=== PATIENT | male | born 1985 | race Native Hawaiian/Other Pacific Islander ===

== ENCOUNTER 2018-01-02 10:14 | Emergency (ER) | payer OTHER ==
[2018-01-02 10:28] VITALS: BP 143/89; PULSE 70; RESP 16; TEMP 97.5; O2SAT 99
[2018-01-02] MEDS ORDERED: Sodium Chloride 0.9% 1,000 ML IV STA (10:48)
--- NOTE | 2018-01-02 11:09 | ED PDOC ---
Upper Extremity Pain/Injury Time Seen by Provider: 01/02/18 10:26 Chief Complaint (Nursing): Upper Extremity Problem/Injury Chief Complaint (Provider): Upper Extremity Problem/Injury History Per: Patient History/Exam Limitations: no limitations Onset/Duration Of Symptoms: Days (x2) Current Symptoms Are (Timing): Still Present Additional Complaint(s): 32 year old male with medical history of asthma, presents to the emergency department with a complaint of right-sided neck pain radiating to right shoulder ongoing for 2 days. Patient stated he had went bowling a few days prior to onset of symptoms. He also reported left sided lower back pain that radiates to his left leg. Denied any weakness or paresthesia. Patient was seen in Urgent Care earlier today and referred to ED to evaluate concern for rhabdomyolysis. PMD: none provided Past Medical History Reviewed: Historical Data, Nursing Documentation, Vital Signs Vital Signs: Last Vital Signs Temp 97.5 F L 01/02/18 10:33 Pulse 70 01/02/18 10:33 Resp 16 01/02/18 10:33 BP 143/89 01/02/18 10:33 Pulse Ox 99 01/02/18 10:33 - Medical History PMH: Asthma - Surgical History Surgical History: No Surg Hx - Family History Family History: States: Unknown Family Hx - Social History Current smoker - smoking cessation education provided: No Alcohol: Social Drugs: Denies - Home Medications Home Medications: Ambulatory Orders Medication Instructions Recorded Cyclobenzaprine [Cyclobenzaprine 10 mg PO TID #10 tab 01/02/18 HCl] Naproxen [Naprosyn] 500 mg PO Q12H #20 tab 01/02/18 - Allergies Allergies/Adverse Reactions: Allergies Allergy/AdvReac Type Severity Reaction Status Date / Time No Known Allergies Allergy Verified 01/02/18 10:35 Review of Systems ROS Statement: Except As Marked, All Systems Reviewed And Found Negative Musculoskeletal: Positive for: Neck Pain (right-sided), Shoulder Pain (right- sided), Back Pain (lower left-side), Leg Pain (left-sided) Neurological: Negative for: Weakness (or paresthesia) Physical Exam - Reviewed Nursing Documentation Reviewed: Yes Vital Signs Reviewed: Yes - Physical Exam Appears: Positive for: Non-toxic, No Acute Distress Neck: Positive for: Pain On Movement Of Neck (right-sided paracervical tenderness with muscle spasm). Negative for: Trachea Midline (tenderness) Back: Positive for: Normal Inspection. Negative for: Vertebral Tenderness, Muscle Spasm Extremity: Positive for: Normal ROM (upper/lower). Negative for: Pedal Edema, Calf Tenderness, Deformity (upper/lower) Neurologic/Psych: Positive for: Alert, Oriented. Negative for: Motor/Sensory Deficits (or focal deficits) - Laboratory Results Result Diagrams: 01/02/18 10:58 - ECG O2 Sat by Pulse Oximetry: 99 (RA) Pulse Ox Interpretation: Normal Medical Decision Making Medical Decision Making: Initial Impression: Neck pain; Shoulder pain; Back pain Initial Plan: * CMP * CPK * NS 1,000ml IV per 1,000mls/hr * Xray c-spine Scribe Attestation: Documented by Lupe Wilburn, acting as a scribe for Farhad Lazo MD. Provider Scribe Attestation: All medical record entries made by the Scribe were at my direction and personally dictated by me. I have reviewed the chart and agree that the record accurately reflects my personal performance of the history, physical exam, medical decision making, and the department course for this patient. I have also personally directed, reviewed, and agree with the discharge instructions and disposition. Disposition - Clinical Impression Clinical Impression: Radiculopathy, cervical - Patient ED Disposition Is Patient to be Admitted: No Counseled Patient/Family Regarding: Studies Performed, Diagnosis, Need For Followup, Rx Given - Disposition Referrals: Danilo Mensah MD [Medical Doctor] - Disposition: Routine/Home Disposition Time: 11:20 Condition: FAIR Prescriptions: Cyclobenzaprine [Cyclobenzaprine HCl] 10 mg PO TID #10 tab Naproxen [Naprosyn] 500 mg PO Q12H #20 tab Instructions: Radiculopathy Forms: [employer] (Guyanese)
[2018-01-02 11:10] LABS: ALB/GLOB RATIO 1.4 (1.0-2.1); ALBUMIN 4.7 g/dL (3.5-5.0); ALT/SGPT 49 U/L (21-72); AST/SGOT 52 U/L (17-59); BLOOD UREA NITROGEN 18 mg/dl (9-20); CALCIUM 9.8 mg/dL (8.4-10.2); GFR AFRICAN-AMERICAN > 60; GFR NON-AFRICAN AMERICAN > 60
--- NOTE | 2018-01-02 11:11 | RAD ---
PROCEDURE: Cervical Spine Radiographs. HISTORY: Pain. COMPARISON: None. FINDINGS: BONES: Alignment maintained. No fracture. Dens Intact. Straightening of the cervical spine which could be due to muscle spasm. DISC SPACES: [id number] intervertebral disc is space narrowing noted specially at C3-C4 and C6-C7. Osteophyte lipping noted more prominent at C3-C4 and C6-C7 suggestive of endplate degenerative changes. SOFT TISSUES: Normal. No prevertebral soft tissue swelling. OTHER FINDINGS: None. IMPRESSION: Moderate degenerative changes associated with osteophyte formation more prominent at C3-C4 and C6-C7.
== END 2018-01-02 11:46 | disposition home or self-care (01) ==
LOC: H.ER 10:14
DX: M54.12 Radiculopathy, cervical region (principal)
CPT/HCPCS: 72040; 80053; 82550; 96361; 96374; 99283; J1885; J7040

== ENCOUNTER 2018-03-07 08:57 | Emergency (ER) | payer OTHER ==
[2018-03-07 09:03] VITALS: BP 137/88; PULSE 82; TEMP 97; O2SAT 98
[2018-03-07 09:04] VITALS: BMI 25.7
--- NOTE | 2018-03-07 09:26 | ED PDOC ---
Lower Extremity Pain/Injury Time Seen by Provider: 03/07/18 09:05 Chief Complaint (Nursing): Lower Extremity Problem/Injury History Per: Patient (This 32 yo male presents to the ER because of multiple falls related to ongoing right knee pain that prevents him from having a normal gait. This causes his right foot to drag. He says he fells a few times landing on his knee. In addition he feels his hips popping in and out. Patient was seen in this ER 2 months ago. He had some blood work and x-rays and was discharged to followup with ortho in the area. He has not been able to because he works in [employer] and lives in [place]. His other complaints include hyperextension of the right first toe. He is concerned about fractures of his feet and is interested to know the bony condition of his knees and hips. Patient arrived to the ER via [employer] and ambulated into his ER location.) History/Exam Limitations: no limitations Current Symptoms Are (Timing): Still Present Past Medical History Reviewed: Historical Data Vital Signs: Last Vital Signs Temp 97 F L 03/07/18 09:03 Pulse 82 03/07/18 09:03 Resp BP 137/88 03/07/18 09:03 Pulse Ox 98 03/07/18 09:07 - Medical History PMH: Asthma Other PMH: diffuse eczema - Surgical History Surgical History: No Surg Hx - Family History Family History: States: Unknown Family Hx - Living Arrangements Living Arrangements: Alone - Social History Current smoker - smoking cessation education provided: No Alcohol: Social Drugs: Denies - Home Medications Home Medications: Ambulatory Orders Medication Instructions Recorded Cyclobenzaprine [Cyclobenzaprine 10 mg PO TID #10 tab 01/02/18 HCl] Naproxen [Naprosyn] 500 mg PO Q12H #20 tab 01/02/18 - Allergies Allergies/Adverse Reactions: Allergies Allergy/AdvReac Type Severity Reaction Status Date / Time No Known Allergies Allergy Verified 03/07/18 09:06 Review of Systems ROS Statement: Except As Marked, All Systems Reviewed And Found Negative Constitutional: Negative for: Fever, Chills Respiratory: Negative for: Shortness of Breath Gastrointestinal: Negative for: Nausea, Vomiting Musculoskeletal: Positive for: Other (abnormal gait with right foot drag, hyperextended right toe, evidence of knee joint laxity when walking. He is able to bear weight. ). Negative for: Back Pain Physical Exam - Reviewed Nursing Documentation Reviewed: Yes Vital Signs Reviewed: Yes - Physical Exam Appears: Positive for: Well, Non-toxic, No Acute Distress Head Exam: Positive for: ATRAUMATIC, NORMAL INSPECTION, NORMOCEPHALIC Skin: Positive for: Normal Color, Warm, Rash (diffuse eczema) Eye Exam: Positive for: Normal appearance ENT: Positive for: Normal ENT Inspection Neck: Positive for: Normal Gastrointestinal/Abdominal: Positive for: Normal Exam, Soft Back: Positive for: Normal Inspection Extremity: Positive for: Other (hyperextended right first toe; joint laxity of the right knee (patient able to flex; the knee seems to hyperextend when he stands and puts weight on it). The is no swelling or obvious deformity of any of his joints.) Neurologic/Psych: Positive for: Alert, Oriented - ECG O2 Sat by Pulse Oximetry: 98 - Radiology X-Ray: Read By Radiologist X-Ray Interpretation: No Acute Disease Medical Decision Making Medical Decision Making: X-rays read by radiology. Patient has CD's with images of all x-rays. Advised patient to followup with a PCP. Also referred him to neurosurgery, orthopedics and neurology for further evaluation. Disposition - Clinical Impression Clinical Impression: Joint problem - Patient ED Disposition Is Patient to be Admitted: No Doctor Will See Patient In The: Office Counseled Patient/Family Regarding: Diagnosis, Need For Followup - Disposition Referrals: Jhon Garrison MD [Staff Provider] - Jazzy Rodriguez MD [Staff Provider] - [employer] [facility] [Outside] Mandeep Cramer MD [Medical Doctor] - Disposition: Routine/Home Disposition Time: 10:38 Condition: STABLE Instructions: Joint Pain Forms: [employer] (Italian) - POA Present On Arrival: Falls Or Trauma
--- NOTE | 2018-03-07 10:04 | RAD ---
PROCEDURE: Radiographs of the Lumbar Spine. HISTORY: pain; yesterday COMPARISON: No prior. FINDINGS: BONES: Normal alignment. No listhesis. No fracture. DISC SPACES: Unremarkable. OTHER FINDINGS: None. IMPRESSION: Unremarkable radiographs of the lumbar spine.
--- NOTE | 2018-03-07 10:04 | RAD ---
PROCEDURE: Radiographs of the pelvis and bilateral hips HISTORY: pain; yesterday COMPARISON: None. FINDINGS: BONES: Pelvis: Unremarkable. Right hip:Unremarkable. Left hip:Unremarkable. JOINTS: Right hip: Unremarkable. Left hip: Unremarkable. Sacroiliac Joints: Unremarkable. Pubic symphysis: Unremarkable. SOFT TISSUES: Normal. OTHER FINDINGS: None. IMPRESSION: Unremarkable radiographs of the hips and pelvis.
--- NOTE | 2018-03-07 10:06 | RAD ---
PROCEDURE: Bilateral Feet Radiographs. HISTORY: pain; yesterday COMPARISON: None. FINDINGS: BONES: Right Foot: No acute fracture. Left Foot: No acute fracture. JOINTS: Right Foot: Unremarkable. Left Foot: Unremarkable. SOFT TISSUES: Right Foot: Normal. Left Foot: Normal. OTHER FINDINGS: None. IMPRESSION: No demonstrated fracture or dislocation.
--- NOTE | 2018-03-07 10:06 | RAD ---
PROCEDURE: Bilateral Knee Radiographs. HISTORY: pain; yesterday COMPARISON: None. FINDINGS: BONES: Right Knee: No acute fracture. Left Knee: No acute fracture. JOINTS: Right Knee: Unremarkable. Left knee: Unremarkable. SOFT TISSUES: Right Knee: Normal. Left Knee: Normal. JOINT EFFUSION: Right Knee: None. Left Knee: None. OTHER FINDINGS: None. IMPRESSION: No demonstrated fracture or dislocation.
== END 2018-03-07 10:40 | disposition home or self-care (01) ==
LOC: H.ER 08:57
DX: M25.9 Joint disorder, unspecified (principal)